=== PATIENT | male | born 1980 | race Caucasian/White ===

== ENCOUNTER 2021-01-22 05:41 | Day surgery (SDC) | payer OTHER ==
[2021-01-14 13:55] LABS: BASOPHILS # (AUTO) 0.1 X10'3 (0-0.2); BASOPHILS % (AUTO) 0.6 % (0-1); EOSINOPHILS # (AUTO) 0.1 X10'3 (0-0.9); EOSINOPHILS % (AUTO) 0.4 % (0-6); LYMPHOCYTES % (AUTO) 16.7 % (21-51); MEAN CORPUSCULAR HEMOGLOBIN 27.1 PG (27.0-31.0); MEAN CORPUSCULAR HGB CONC 33.4 g/dL (33.0-36.5); MEAN CORPUSCULAR VOLUME 81.2 FL (78-98); MONOCYTES # (AUTO) 0.5 X10'3 (0-0.9); MONOCYTES % (AUTO) 4.5 % (2-12); NEUTROPHILS # (AUTO) 9.2 X10'3 (1.8-7.7); NEUTROPHILS % (AUTO) 77.8 % (42-75); PRE OP HEMATOCRIT 50.1 % (42.0-52.0); PRE OP HEMOGLOBIN 16.7 g/dL (14.0-17.9); PRE OP PLATELET COUNT 284 X10'3 (140-440); RED BLOOD COUNT 6.17 X10'6 (4.70-6.10); RED CELL DISTRIBUTION WIDTH 16.5 % (11.5-14.5)
[2021-01-14 14:12] LABS: ALBUMIN 3.9 G/DL (3.4-5.0); ALBUMIN/GLOBULIN RATIO 0.8 (1.1-1.5); ALKALINE PHOSPHATASE 93 IU/L (46-116); BLOOD UREA NITROGEN 14 MG/DL (7-18); CALCIUM 9.2 MG/DL (8.5-10.1); CHLORIDE 103 MMOL/L (99-107); CREATININE 1.08 MG/DL (0.60-1.10); PRE OP ALT 54 U/L (30-65); PRE OP ANION GAP 14 (8-16); PRE OP AST 25 U/L (10-37); PRE OP BILIRUB, TOTAL 0.8 MG/DL (0.0-1.0); PRE OP GLUCOSE 111 MG/DL (70-104); PRE OP POTASSIUM 3.6 MMOL/L (3.4-5.1); PRE OP SODIUM 140 MMOL/L (135-145); TOTAL CARBON DIOXIDE 23.5 MMOL/L (24-32); TOTAL PROTEIN 8.7 G/DL (6.4-8.2); eGFR 75 ML/MIN
[2021-01-22] VITALS (9 sets, daily range): BP systolic 141–164; BP diastolic 100–112
[~2021-01-22] VITALS: Ht 177.8 cm; Wt 158.0 kg
[~2021-01-22 05:41] MED LIST: LOSA1TAB39 PO; ceFAZolin inj. 3,000 MG in normal saline 100ml IV soln 100 ML IV ONE; famotidine 20mg tablet PO ONE; ringers solution, lacted 1,000 ML IV SCH; vancomycin 1,500 MG in NS 300ml IV soln IV ONE
[2021-01-22] MEDS ORDERED: scopolamine 1mg/72 hr patch TD ONE (06:57)
[2021-01-22] MEDS ORDERED: midazolam 1 mg/ML 2ml injection ONE (07:13)
[2021-01-22] MEDS ORDERED: fentaNYL /PF 50mcg/ml 5ml ampule ONE (07:13)
[2021-01-22] MEDS ORDERED: triamcinolone acetonide 40mg/ml inj ONE ×2 (07:18→08:54)
[2021-01-22] MEDS ORDERED: BUPIVAcaine/PF 2.5mg/ml (0.25%) 10ml vial ONE ×2 (07:18→09:00)
[2021-01-22] MEDS ORDERED: ringers solution, lacted 1,000 ML IV SCH (07:35)
[2021-01-22] MEDS ORDERED: meperidine/PF 25mg/ml syringe IV PRN ×3 (07:35)
[2021-01-22] MEDS ORDERED: morphine 4 MG/ML inj SYRINge IV PRN (07:35)
[2021-01-22] MEDS ORDERED: proCHLORperazine 10 MG/2 ml inj IV PRN (07:35)
[2021-01-22] MEDS ORDERED: morphine 2 MG/ML inj. syringe IV PRN (07:35)
[2021-01-22] MEDS ORDERED: ondansetron/PF 4mg/2ml inj IV PRN (07:35)
[2021-01-22] MEDS ORDERED: sevoflurane 250ml liquid IH ONE (08:25)
[2021-01-22] MEDS ORDERED: glycopyrrolate 0.2mg/ml inj ONE (09:12)
[2021-01-22] MEDS ORDERED: rocuronium 10mg/ml inj IV ONE (09:12)
[2021-01-22] MEDS ORDERED: acetaminophen 1,000mg/100ml IV 100 ML IV ONE (09:12)
[2021-01-22] MEDS ORDERED: phenylephrine 10mg/ml inj. ONE (09:12)
[2021-01-22] MEDS ORDERED: neostigmine methylsulfate 1 MG/ML 10ml vial ONE (09:12)
[2021-01-22] MEDS ORDERED: dexamethasone sod phosphate 4mg/ml inj. ONE (09:12)
[2021-01-22] MEDS ORDERED: propofol inj 20 ML IV ONE (09:12)
[2021-01-22] MEDS ORDERED: LIDOcaine 2% (20mg/ml) 5ml vial ONE (09:12)
[2021-01-22] MEDS ORDERED: ePHEDrine 50MG/ML INJ. ONE (09:12)
[2021-01-22] MEDS ORDERED: ondansetron/PF 4mg/2ml inj ONE (09:12)
--- NOTE | 2021-01-22 09:24 | NUR ---
Received from OR via [facility] , accompanied by Anesthesiologist GADIEL and report given by Anesthesiolgist. PATIENT WITH 20G PIV IN LEFT UE RUNNING LR AT 100. VSS. ATTEMPTED TO JHONNY BRACE WITH 2P. + RADIAL PULSE PRESENT. ANTERIOR SHOULDER DRESSING WITH BLOODY SHADOWING TO POSTERIOR SHOULDER DRESSING. Addendum: 01/22/21 at 0953 by Zach Valera RN, RN Amended: Links added.
--- NOTE | 2021-01-22 10:34 | NUR ---
ALL DISCHARGE CRITERIA HAS BEEN MET. VSS, PAIN AT A TOLERABLE LEVEL, VOIDING AND ABLE TO SAFELY AMBULATE AND TRANSFER SELF. IV TAKEN OUT WITHOUT ANY COMPLICATIONS. ALL DISCHARGE INSTRUCTIONS COVERED WITH PATIENT AND ALL QUESTIONS ANSWERED. PATIENT TAKEN OUT VIA WHEELCHAIR TO PERSONAL VEHICLE WHERE FAMILY/FRIEND DROVE PATIENT HOME. DISCUSSED ALL DC INSTRUCTIONS WITH MOTHER OF PATIENT WELL PATIENT AND DISCUSSED BEING WITH PATIENT, ESPECIALLY WHILE SLEEPING. DEEP BREATHING AND COUGHING, INSTRUCTED MOTHER WELL PATIENT ON USE OF INCENTIVE SPIROMETER AND IMPORTANCE OF THIS 2' INTERSCALENE NERVE BLOCK. PATIENT 98-100% ON ROOM AIR UPON DC. DISCUSSED DRESSING CARE AND ALL INSTRUCTIONS. Addendum: 01/22/21 at 1105 by Zach Valera RN, RN Amended: Links added.
== END 2021-01-22 10:34 | disposition home or self-care (01) ==
LOC: PAS 05:41
PROVIDERS: ATTEND Orthopaedic Surgery
DX: M19.011 Primary osteoarthritis, right shoulder (principal); M75.41 Impingement syndrome of right shoulder; M65.811 Other synovitis and tenosynovitis, right shoulder; M94.211 Chondromalacia, right shoulder; M75.51 Bursitis of right shoulder; S46.011A Strain of muscle(s) and tendon(s) of the rotator cuff of right shoulder, initial encounter; S46.111A Strain of muscle, fascia and tendon of long head of biceps, right arm, initial encounter; I10 Essential (primary) hypertension; E78.5 Hyperlipidemia, unspecified; E66.01 Morbid (severe) obesity due to excess calories; Z68.43 Body mass index [BMI] 50.0-59.9, adult; Z98.890 Other specified postprocedural states; Z88.8 Allergy status to other drugs, medicaments and biological substances; Z20.822 Contact with and (suspected) exposure to COVID-19; X58.XXXA Exposure to other specified factors, initial encounter; Y93.89 Activity, other specified; Y92.89 Other specified places as the place of occurrence of the external cause; Y99.8 Other external cause status
CPT/HCPCS: 29820; 29823; 29824; 29826; 36415; 80053; 82948; 85025; 93005; J0131; J0690; J1100; J2001; J2250; J2370; J2405; J2704; J2710; J3010; J3301; J3370; J3490; J7040; L3650; U0003; U0005; Z7506; Z7508; Z7512; A4215; A4618; A6250; A6449; A7000; J7120